=== PATIENT | female | born 1990 | race Caucasian/White ===

== ENCOUNTER 2020-05-11 20:42 | Emergency (ER) | payer OTHER ==
[2020-05-11] MEDS ORDERED: Sodium Chloride 0.9% 10 ML Syringe FLUSH PRN (21:10)
[2020-05-11] MEDS ORDERED: HYDROmorphone 1 MG/ML Syringe IVPUSH ONE ×2 (21:11→22:04)
[2020-05-11] MEDS ORDERED: Sodium Chloride 0.9% 1,000 ML IV ONE (21:30)
[2020-05-11] MEDS ORDERED: Take Home: Acetaminophen/HYDROcodone 325-10 MG, 5 Tab Pack PO ONE (22:10)
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
--- NOTE | 2020-05-12 07:43 | CR ---
[id number] RAD/RAD Elbow Right 2V EXAM: RAD Elbow Right 2V CLINICAL DATA: TRAUMA COMPARISON: No previous similar exam is available. FINDINGS: An impacted proximal right radial neck fracture is seen with diastases of fracture fragments The fracture does not necessarily appear acute Here clinical correlation is needed There is no posterior fat pad sign. IMPRESSION: IMPACTED DIASTATIC PROXIMAL RIGHT RADIAL NECK FRACTURE Doroteo Eden MD 05/12/20 0742 Thank you for allowing us to participate in the care of your patient.
--- NOTE | 2020-05-12 07:44 | CR ---
[id number] RAD/RAD Forearm Right 2V EXAM: RAD Forearm Right 2V CLINICAL DATA: TRAUMA COMPARISON: No previous similar exam is available. FINDINGS: An impacted diastatic right radial neck fracture is seen There is no other fracture or dislocation. IMPRESSION: RIGHT RADIAL NECK FRACTURE Doroteo Eden MD 05/12/20 0737 Thank you for allowing us to participate in the care of your patient.
== END 2020-05-11 22:43 | disposition home or self-care (01) ==
LOC: VM.ED 20:42
DX: S52.121A Displaced fracture of head of right radius, initial encounter for closed fracture (principal); W10.1XXA Fall (on)(from) sidewalk curb, initial encounter
CPT/HCPCS: 29105; 29125; 73080-RT; 73090-RT; 96374; 96376; 99283; 99283-25; A9270-GY; J1170; J7030